=== PATIENT | male | born 2005 | race African-American/Black ===

== ENCOUNTER 2025-07-08 11:19 | Emergency (ER) | payer SELFPAY ==
[2025-07-08 11:34] VITALS: BP 123/59; PULSE 81; RESP 18; TEMP 98.1; BMI 32.5
[2025-07-08] MEDS ORDERED: IBUPROFEN 600 MG TABLET (FP) PO ONE (12:33)
[2025-07-08] MEDS: IBUPROFEN 600 MG TABLET (FP) PO ONE (12:35)
== END 2025-07-08 14:22 | disposition home or self-care (01) ==
LOC: JERFT 11:19
DX: S00.83XA Contusion of other part of head, initial encounter (principal); M54.2 Cervicalgia; M25.511 Pain in right shoulder; M25.532 Pain in left wrist; Y04.8XXA Assault by other bodily force, initial encounter; Y92.410 Unspecified street and highway as the place of occurrence of the external cause
CPT/HCPCS: 70450-TC; 70486-TC; 72125-TC; 73030-TC-RT-FY; 73110-TC-LT-FY; 99284-25